=== PATIENT | male | born 1935 | race Caucasian/White ===

== ENCOUNTER 2018-04-26 15:26 | Emergency (ER) | payer OTHER, MEDICARE ==
--- NOTE | 2018-04-26 17:08 | CR ---
Chest: Two views of the chest were obtained. Comparison: Prior chest x-ray of 12/02/15. Heart size is normal. Slight tortuosity of the thoracic aorta is seen. Lungs show minimal linear scarring is noted within both lung bases. Lungs otherwise are clear. Bony structures are unremarkable for the patient's age. Impression: 1. Nothing acute is seen. Incidental findings as noted above. Diagnostic code #2
--- NOTE | 2018-04-26 17:10 | EDM.PDOC ---
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 Chest Pain Score (Numeric/FACES): 0 - Related Data Allergies Allergy/AdvReac Type Severity Reaction Status Date / Time acetaminophen Allergy Cannot Verified 04/01/15 10:20 [From Darvocet-N] Remember cefadroxil hydrate Allergy Cannot Verified 04/01/15 10:20 [From Duricef] Remember corn syrup Allergy Cannot Verified 04/01/15 10:20 Remember diphenhydramine HCl Allergy Cannot Verified 04/01/15 10:20 [From Benadryl] Remember erythromycin base Allergy Cannot Verified 04/01/15 10:20 Remember Penicillins Allergy Cannot Verified 04/01/15 10:20 Remember propoxyphene napsylate Allergy Cannot Verified 04/01/15 10:20 [From Darvocet-N] Remember Home Meds: Home Meds Alfuzosin HCl [Alfuzosin HCl ER] 10 mg PO DAILY 04/02/15 [History] Aspirin [Children's Aspirin] 81 mg PO DAILY 04/02/15 [History] Atenolol 12.5 mg PO DAILY 04/02/15 [History] Cetirizine [ZyrTEC] 10 mg PO DAILY 04/02/15 [History] Clotrimazole [Mycelex] 10 mg PO 5XDAY 04/02/15 [History] FLUoxetine [PROzac] 20 mg PO DAILY 04/02/15 [History] Hydrocortisone [Hydrocortisone 2.5% Crm] 1 applic TOP ASDIRECTED 04/02/15 [ History] Lisinopril 40 mg PO DAILY 04/02/15 [History] Alfuzosin HCl [Alfuzosin HCl ER] 10 mg PO DAILY 12/02/15 [History] Aspirin 81 mg PO DAILY 12/02/15 [History] Atenolol 12.5 mg PO DAILY 12/02/15 [History] Carbamide Peroxide [Debrox 6.5% Otic Soln] 5 drop EARBOTH ASDIRECTED 12/02/15 [ History] Cetirizine HCl [All Day Allergy] 10 mg PO DAILY 12/02/15 [History] Clotrimazole 10 mg PO 5XDAY 12/02/15 [History] FLUoxetine HCl [Fluoxetine HCl] 20 mg PO DAILY 12/02/15 [History] Hydrocortisone/Pramoxine [Hydrocort-Pramoxine 2.5-1% Crm] 1 mg TOP BEDTIME 12/01 [History] Lisinopril [Zestril] 40 mg PO DAILY 12/02/15 [History] Meloxicam 15 mg PO DAILY 12/02/15 [History] Nitroglycerin [Nitrostat] 0.4 mg SL Q5M PRN 12/02/15 [History] atorvaSTATin [Lipitor] 20 mg PO BEDTIME 12/02/15 [History] metFORMIN HCl [Metformin HCl] 500 mg PO DAILY 12/02/15 [History] raNITIdine HCl [Ranitidine HCl] 150 mg PO BID 12/02/15 [History] traMADol HCl [Ultram] 50 mg PO TID PRN 12/02/15 [History] Past Medical History HEENT History: Reports: Impaired Vision Other HEENT History: glasses Cardiovascular History: Reports: [place], Stents Gastrointestinal History: Reports: Other (See Below) Other Gastrointestinal History: Ulcers Musculoskeletal History: Reports: Arthritis Hematologic History: Reports: Anemia, Blood Transfusion(s) - Past Surgical History HEENT Surgical History: Reports: Cataract Surgery, Eye Surgery GI Surgical History: Reports: Appendectomy Social & Family History - Family History Family Medical History: Noncontributory - Caffeine Use Caffeine Use: Reports: None ED ROS GENERAL - Review of Systems Review Of Systems: See Below Constitutional: Reports: No Symptoms HEENT: Reports: No Symptoms Respiratory: Denies: Shortness of Breath Cardiovascular: Reports: Chest Pain Endocrine: Reports: No Symptoms GI/Abdominal: Reports: No Symptoms : Reports: No Symptoms Musculoskeletal: Reports: No Symptoms Skin: Reports: No Symptoms Neurological: Reports: No Symptoms Psychiatric: Reports: No Symptoms Hematologic/Lymphatic: Reports: No Symptoms Immunologic: Reports: No Symptoms ED EXAM, GENERAL - Physical Exam Exam: See Below Exam Limited By: No Limitations General Appearance: Alert, WD/WN, No Apparent Distress Neck: Normal Inspection, Supple, Non-Tender, Full Range of Motion Respiratory/Chest: No Respiratory Distress, Lungs Clear, Normal Breath Sounds, No Accessory Muscle Use, Chest Non-Tender Cardiovascular: Normal Peripheral Pulses, Regular Rate, Rhythm, No Edema, No Gallop, No JVD, No Murmur, No Rub Back Exam: Normal Inspection, Full Range of Motion Extremities: Normal Inspection, Normal Range of Motion, Non-Tender, No Pedal Edema, Normal Capillary Refill Neurological: Alert, Oriented, CN II-XII Intact, Normal Cognition, Normal Gait, Normal Reflexes, No Motor/Sensory Deficits Psychiatric: Normal Affect, Normal Mood Skin Exam: Warm, Dry, Intact, Normal Color, No Rash Lymphatic: No Adenopathy EKG INTERPRETATION Comparison: Change From Previous EKG Course - Vital Signs Last Recorded V/S: Last Vital Signs Temp 98.0 F 04/26/18 19:10 Pulse 70 04/26/18 19:10 Resp 18 04/26/18 19:10 BP 154/78 H 04/26/18 19:10 Pulse Ox 96 04/26/18 19:10 - Orders/Labs/Meds Orders: Active Orders 24 hr Category Date Time Status EKG Documentation Completion [RC] STAT Care 04/26/18 15:47 Active Labs: Laboratory Tests 04/26/18 04/26/18 04/26/18 Range/Units 15:40 15:40 15:40 WBC 7.61 (4.23-9.07) K/mm3 RBC 4.49 L (4.63-6.08) M/mm3 Hgb 14.1 (13.7-17.5) gm/L Hct 40.1 (40.1-51.0) % MCV 89.3 (79.0-92.2) fl MCH 31.4 (25.7-32.2) pg MCHC 35.2 (32.2-35.5) g/dl RDW Std Deviation 43.9 (35.1-43.9) fL Plt Count 180 (163-337) K/mm3 MPV 9.1 L (9.4-12.3) fl Neut % (Auto) 64.3 (34.0-67.9) % Lymph % (Auto) 24.0 (21.8-53.1) % [place] % (Auto) 8.4 (5.3-12.2) % Eos % (Auto) 2.8 (0.8-7.0) Baso % (Auto) 0.1 (0.1-1.2) % Neut # (Auto) 4.89 (1.78-5.38) K/mm3 Lymph # (Auto) 1.83 (1.32-3.57) K/mm3 [place] # (Auto) 0.64 (0.30-0.82) K/mm3 Eos # (Auto) 0.21 (0.04-0.54) K/mm3 Baso # (Auto) 0.01 (0.01-0.08) K/mm3 PT 12.1 (9.5-12.1) SECONDS INR 1.11 D-Dimer, Quantitative 0.31 (0.19-0.50) mg/L Sodium 138 (136-145) mEq/L Potassium 4.4 (3.5-5.1) mEq/L Chloride 105 (98-107) mEq/L Carbon Dioxide 27 (21-32) mEq/L Anion Gap 10.4 (5-15) BUN 21 H (7-18) mg/dL Creatinine 1.1 (0.7-1.3) mg/dL Est Cr Clr Drug Dosing 49.10 mL/min Estimated GFR (MDRD) > 60 (>60) mL/min BUN/Creatinine Ratio 19.1 H (14-18) Glucose 114 (83-115) mg/dL Calcium 9.0 (8.5-10.1) mg/dL Magnesium 2.0 (1.8-2.4) mg/dl Total Bilirubin 0.7 (0.2-1.0) mg/dL AST 29 (15-37) U/L ALT 53 (16-63) U/L Alkaline Phosphatase 82 (46-116) U/L Troponin I < 0.017 (0.00-0.056) ng/mL Total Protein 7.2 (6.4-8.2) g/dl Albumin 3.8 (3.4-5.0) g/dl Globulin 3.4 gm/dL Albumin/Globulin Ratio 1.1 (1-2) 04/26/18 Range/Units 18:15 WBC (4.23-9.07) K/mm3 RBC (4.63-6.08) M/mm3 Hgb (13.7-17.5) gm/L Hct (40.1-51.0) % MCV (79.0-92.2) fl MCH (25.7-32.2) pg MCHC (32.2-35.5) g/dl RDW Std Deviation (35.1-43.9) fL Plt Count (163-337) K/mm3 MPV (9.4-12.3) fl Neut % (Auto) (34.0-67.9) % Lymph % (Auto) (21.8-53.1) % [place] % (Auto) (5.3-12.2) % Eos % (Auto) (0.8-7.0) Baso % (Auto) (0.1-1.2) % Neut # (Auto) (1.78-5.38) K/mm3 Lymph # (Auto) (1.32-3.57) K/mm3 [place] # (Auto) (0.30-0.82) K/mm3 Eos # (Auto) (0.04-0.54) K/mm3 Baso # (Auto) (0.01-0.08) K/mm3 PT (9.5-12.1) SECONDS INR D-Dimer, Quantitative (0.19-0.50) mg/L Sodium (136-145) mEq/L Potassium (3.5-5.1) mEq/L Chloride (98-107) mEq/L Carbon Dioxide (21-32) mEq/L Anion Gap (5-15) BUN (7-18) mg/dL Creatinine (0.7-1.3) mg/dL Est Cr Clr Drug Dosing mL/min Estimated GFR (MDRD) (>60) mL/min BUN/Creatinine Ratio (14-18) Glucose (83-115) mg/dL Calcium (8.5-10.1) mg/dL Magnesium (1.8-2.4) mg/dl Total Bilirubin (0.2-1.0) mg/dL AST (15-37) U/L ALT (16-63) U/L Alkaline Phosphatase (46-116) U/L Troponin I < 0.017 (0.00-0.056) ng/mL Total Protein (6.4-8.2) g/dl Albumin (3.4-5.0) g/dl Globulin gm/dL Albumin/Globulin Ratio (1-2) - Re-Assessments/Exams Free Text/Narrative Re-Assessment/Exam: 04/26/18 17:19 Chest x-ray reveals no acute findings. Heart is normal. Slight tortuosity of the thoracic aorta is seen. Lung sounds minimal linear scarring is noted in both lung bases. Lungs otherwise are clear. Bony structures are unremarkable for patient's age. Free Text/Narrative Re-Assessment/Exam: 04/26/18 18:58 Second troponin is negative at 0.17. Patient has been pain-free since arrival in the emergency room department I will discharge home with instructions for the [facility] Instructed patient to return to the emergency room for any new or acutely worsening symptoms. Departure - Departure Time of Disposition: 18:58 Disposition: Home, Self-Care 01 Condition: Good Clinical Impression: Atypical chest pain Instructions: Angina Pectoris, [id number] Referrals: Adriane Meyers MD [Primary Care Provider] - Forms: ED Department Discharge Additional Instructions: He has been diagnosed with angina pectoris. I'll discharge home with instructions for you to [facility]. Return to the emergency room for any new or acutely worsening symptoms. <Jon Leung - Last Filed: 04/26/18 20:19> Course - Re-Assessments/Exams Free Text/Narrative Re-Assessment/Exam: 04/26/18 20:17. History and exam has been done by JONNY Wong. I have also interviewed and examined patient. I agree with history exam and treatment plan as documented.
[2018-04-26 19:21] VITALS: BP 154/78
== END 2018-04-26 19:10 | disposition home or self-care (01) ==
LOC: JD.ED 15:26
DX: R07.89 Other chest pain (principal); I25.2 Old myocardial infarction; Z88.1 Allergy status to other antibiotic agents; Z88.8 Allergy status to other drugs, medicaments and biological substances; Z79.899 Other long term (current) drug therapy; Z79.84 Long term (current) use of oral hypoglycemic drugs; Z79.82 Long term (current) use of aspirin; Z95.5 Presence of coronary angioplasty implant and graft
CPT/HCPCS: 36415; 71046; 71046-26; 80053; 83735; 84484; 85025; 85379; 85610; 93005; 99284; 99285-25

== ENCOUNTER 2021-01-01 09:06 | Day surgery (SDC) | payer MEDICARE, OTHER ==
--- NOTE | 2021-01-01 09:31 | PCM.PREANE ---
Preanesthetic Assessment - Procedure Proposed Procedure: cataract right - Anesthesia/Transfusion/Family Hx Anesthesia History: Prior Anesthesia Without Reaction Family History of Anesthesia Reaction: No Transfusion History: No Prior Transfusion(s) - Review of Systems General: No Symptoms Pulmonary: Shortness of Breath Cardiovascular: Dyspnea on Exertion Gastrointestinal: No Symptoms Neurological: No Symptoms Other: Reports: None - Physical Assessment NPO Status Date: 01/01/21 NPO Status Time: 08:30 (chew out) Vital Signs: 157/80 75 92% 17 97.8 Height: 5 ft 9 in Weight: 107.048 kg ASA Class: 3 Mental Status: Alert & Oriented x3 Airway Class: Mallampati = 1 Dentition: Reports: Dentures (top and bottom) Thyro-Mental Finger Breadths: 3 Mouth Opening Finger Breadths: 3 ROM/Head Extension: Full Lungs: Clear to Auscultation, Normal Respiratory Effort Cardiovascular: Regular Rate, Regular Rhythm - Allergies Allergies/Adverse Reactions: Allergies Allergy/AdvReac Type Severity Reaction Status Date / Time acetaminophen Allergy Cannot Verified 04/01/15 10:20 [From Darvocet-N] Remember cefadroxil hydrate Allergy Cannot Verified 04/01/15 10:20 [From Duricef] Remember corn syrup Allergy Cannot Verified 04/01/15 10:20 Remember diphenhydramine HCl Allergy Cannot Verified 04/01/15 10:20 [From Benadryl] Remember erythromycin base Allergy Cannot Verified 04/01/15 10:20 Remember Penicillins Allergy Cannot Verified 04/01/15 10:20 Remember propoxyphene napsylate Allergy Cannot Verified 04/01/15 10:20 [From Darvocet-N] Remember - Blood Blood Available: No - Anesthesia Plan Beta Cesar: Atenolol Med Last Dose Date: 01/01/21 Med Last Dose Time: 05:30 - Acknowledgements Anesthesia Type Planned: MAC Pt an Appropriate Candidate for the Planned Anesthesia: Yes Alternatives and Risks of Anesthesia Discussed w Pt/Guardian: Yes Pt/Guardian Understands and Agrees with Anesthesia Plan: Yes PreAnesthesia Questionnaire HEENT History: Reports: Impaired Vision Other HEENT History: glasses Cardiovascular History: Reports: Hypertension, [place], Stents Gastrointestinal History: Reports: Other (See Below) Other Gastrointestinal History: Ulcers Musculoskeletal History: Reports: Arthritis Endocrine/Metabolic History: Reports: Obesity/BMI 30+ Hematologic History: Reports: Anemia, Blood Transfusion(s) Oncologic (Cancer) History: Denies: Other (See Below) (ear) - Past Surgical History HEENT Surgical History: Reports: Cataract Surgery, Eye Surgery, Other (See Below) (ear) GI Surgical History: Reports: Appendectomy - SUBSTANCE USE Tobacco Use Within Last Twelve Months: Snuff/Dip Second Hand Smoke Exposure: No Days Per Week of Alcohol Use: 0 Recreational Drug Use History: No - HOME MEDS Home Medications: Home Meds Alfuzosin HCl [Alfuzosin HCl ER] 10 mg PO DAILY 04/02/15 [History] Aspirin [Children's Aspirin] 81 mg PO DAILY 04/02/15 [History] Cetirizine [ZyrTEC] 10 mg PO DAILY 04/02/15 [History] Clotrimazole [Mycelex] 10 mg PO 5XDAY 04/02/15 [History] FLUoxetine [PROzac] 20 mg PO DAILY 04/02/15 [History] Hydrocortisone [Hydrocortisone 2.5% Crm] 1 applic TOP ASDIRECTED 04/02/15 [History] Lisinopril 40 mg PO DAILY 04/02/15 [History] atenoloL [Atenolol] 12.5 mg PO DAILY 04/02/15 [History] Alfuzosin HCl [Alfuzosin HCl ER] 10 mg PO DAILY 12/02/15 [History] Aspirin 81 mg PO DAILY 12/02/15 [History] Carbamide Peroxide [Debrox 6.5% Otic Soln] 5 drop EARBOTH ASDIRECTED 12/02/15 [History] Cetirizine HCl [All Day Allergy] 10 mg PO DAILY 12/02/15 [History] Clotrimazole 10 mg PO 5XDAY 12/02/15 [History] FLUoxetine HCl [Fluoxetine HCl] 20 mg PO DAILY 12/02/15 [History] Hydrocortisone/Pramoxine [Hydrocort-Pramoxine 2.5-1% Crm] 1 mg TOP BEDTIME 12/02/15 [History] Meloxicam 15 mg PO DAILY 12/02/15 [History] Nitroglycerin [Nitrostat] 0.4 mg SL Q5M PRN 12/02/15 [History] atenoloL [Atenolol] 12.5 mg PO DAILY 12/02/15 [History] atorvaSTATin [Lipitor] 20 mg PO BEDTIME 12/02/15 [History] lisinopriL [Zestril] 40 mg PO DAILY 12/02/15 [History] metFORMIN HCl [Metformin HCl] 500 mg PO DAILY 12/02/15 [History] raNITIdine HCL [Ranitidine HCl] 150 mg PO BID 12/02/15 [History] traMADol HCl [Ultram] 50 mg PO TID PRN 12/02/15 [History] - CURRENT (IN HOUSE) MEDS Current Meds: Current Medications Brimonidine Tartrate (Brimonidine 0.2% Ophth Soln 5 Ml Bottle) 0 ml EYERT ASDIRECTED KENYATTA Stop: 01/01/21 23:00 Lidocaine HCl (Lidocaine 1% Pf 2 Ml Sdv) 0 ml INJECT ASDIRECTED KENYATTA Stop: 01/01/21 23:00 Phenylephrine HCl (Phenylephrine 2.5% Ophth Soln 2 Ml Bot) 0 ml EYERT ASDIRECTED KENYATTA Stop: 01/01/21 23:00 Pilocarpine HCl (Pilocarpine 4% Ophth Soln 15 Ml Bot) 0 ml EYERT ASDIRECTED KENYATTA Stop: 01/01/21 23:00 Polymyxin/Trimethoprim Sulfate (Polymyxin B/Trimethoprim 10 Ml Bottle) 0 ml EYERT ASDIRECTED KENYATTA Stop: 01/01/21 23:00 Tetracaine HCl (Tetracaine Hcl/Pf 0.5% 4 Ml Bottle) 0 ml EYEBOTH ASDIRECTED KENYATTA Stop: 01/01/21 23:00 Tropicamide (Tropicamide 1% Ophth Soln 15 Ml Bottle) 0 ml EYERT ASDIRECTED KENYATTA Stop: 01/01/21 23:00 Discontinued Medications Cefuroxime Sodium (Cefuroxime 10 Mg/Ml Syringe) 0 mg EYERT ASDIRECTED KENYATTA Stop: 01/01/21 23:00
[2021-01-01] MEDS: Polymyxin B/Trimethoprim 10 ML Bottle EYERT SCH ×4 (09:37→11:13)
[2021-01-01] MEDS: Brimonidine 0.2% Ophth Soln 5 ML Bottle EYERT SCH ×4 (09:45→11:13)
[2021-01-01] MEDS: Phenylephrine 2.5% Ophth Soln 2 ML Bot EYERT SCH ×6 (09:50→10:52)
[2021-01-01] MEDS: Tropicamide 1% Ophth Soln 15 ML Bottle EYERT SCH ×4 (09:58→10:38)
[2021-01-01] MEDS: Cefuroxime 10 MG/ML SYRINGE EYERT SCH ×2 (10:43→11:12)
[2021-01-01] MEDS: Lidocaine 1% PF 2 ML SDV INJECT SCH ×2 (10:43→11:01)
[2021-01-01] MEDS: Pilocarpine 4% Ophth Soln 15 ML Bot EYERT SCH ×2 (10:43→11:13)
[2021-01-01] MEDS: Tetracaine HCl/PF 0.5% 4 ML Bottle EYEBOTH SCH ×2 (10:46→11:00)
--- NOTE | 2021-01-01 11:15 | PCM48HPAN ---
Post Anesthesia Note - EVALUATION WITHIN 48HRS OF ANESTHETIC Vital Signs in Normal Range: Yes Patient Participated in Evaluation: Yes Respiratory Function Stable: Yes Airway Patent: Yes Cardiovascular Function Stable: Yes Hydration Status Stable: Yes Pain Control Satisfactory: Yes Nausea and Vomiting Control Satisfactory: Yes Mental Status Recovered: Yes Vital Signs: Last Vital Signs Temp 36.6 C 01/01/21 09:20 Pulse 75 01/01/21 09:20 Resp 17 01/01/21 09:20 BP 159/71 H 01/01/21 09:34 Pulse Ox 92 L 01/01/21 09:20
[2021-01-01 11:35] VITALS: BP 152/75; PULSE 68
== END 2021-01-01 11:30 | disposition home or self-care (01) ==
LOC: JD.SDS 09:06
PROVIDERS: ATTEND Ophthalmology
DX: H25.89 Other age-related cataract (principal); H35.3133 Nonexudative age-related macular degeneration, bilateral, advanced atrophic without subfoveal involvement; H35.363 Drusen (degenerative) of macula, bilateral; H31.013 Macula scars of posterior pole (postinflammatory) (post-traumatic), bilateral; H02.831 Dermatochalasis of right upper eyelid; H02.834 Dermatochalasis of left upper eyelid; H16.223 Keratoconjunctivitis sicca, not specified as Sjogren's, bilateral; H21.81 Floppy iris syndrome; Z98.890 Other specified postprocedural states; Z90.49 Acquired absence of other specified parts of digestive tract; Z79.82 Long term (current) use of aspirin; Z88.8 Allergy status to other drugs, medicaments and biological substances; Z88.0 Allergy status to penicillin; Z96.1 Presence of intraocular lens
CPT/HCPCS: 66984; J0697; C1780

== ENCOUNTER 2021-05-19 10:23 | Emergency (ER) | payer OTHER ==
[2021-05-19 12:49] VITALS: BP 132/88; PULSE 87
== END 2021-05-19 12:49 | disposition home or self-care (01) ==
LOC: JD.ED 10:23
DX: M19.071 Primary osteoarthritis, right ankle and foot (principal); M25.572 Pain in left ankle and joints of left foot; I10 Essential (primary) hypertension; I25.2 Old myocardial infarction; E66.9 Obesity, unspecified; Z68.33 Body mass index [BMI] 33.0-33.9, adult; Z79.899 Other long term (current) drug therapy; Z88.8 Allergy status to other drugs, medicaments and biological substances; Z88.2 Allergy status to sulfonamides; Z88.0 Allergy status to penicillin; Z72.0 Tobacco use
CPT/HCPCS: 36415; 73610-26-LT; 73610-LT; 73630-26-LT; 73630-LT; 85025; 85652; 86140; 99283; 99283-25